=== PATIENT | female | born 1960 | race Caucasian/White ===

== ENCOUNTER 2022-01-27 14:58 | Emergency (ER) | payer OTHER, SELFPAY ==
[2022-01-27 15:17] VITALS: BP 147/63; PULSE 92; RESP 18; O2SAT 98; BMI 33.1
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
[2022-01-27] MEDS: Ketorolac Tromethamine 30 MG/ML VIAL 15 MG IM (15:25)
[2022-01-27] MEDS: predniSONE 20 MG TABLET 60 MG PO (15:26)
== END 2022-01-27 15:43 | disposition home or self-care (01) ==
PROVIDERS: Emergency Provider Student in an Organized Health Care Education/Training Program; PCP Internal Medicine
DX: S29.012A Strain of muscle and tendon of back wall of thorax, initial encounter (principal); V43.52XA Car driver injured in collision with other type car in traffic accident, initial encounter; Y93.9 Activity, unspecified; Y92.410 Unspecified street and highway as the place of occurrence of the external cause; Y99.9 Unspecified external cause status
CPT/HCPCS: 96372; 99283; 99284; J1885

== ENCOUNTER 2022-01-31 07:48 | Emergency (ER) | payer OTHER, BC, SELFPAY ==
[2022-01-31 08:03] VITALS: BP 159/77; PULSE 96; RESP 20; TEMP 35.8; O2SAT 97; BMI 33.1
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
== END 2022-01-31 08:14 | disposition home or self-care (01) ==
PROVIDERS: Emergency Provider Emergency Medicine Emergency Medical Services; PCP Internal Medicine
DX: S13.4XXA Sprain of ligaments of cervical spine, initial encounter (principal); V49.9XXA Car occupant (driver) (passenger) injured in unspecified traffic accident, initial encounter; Y93.9 Activity, unspecified; Y92.410 Unspecified street and highway as the place of occurrence of the external cause; Y99.9 Unspecified external cause status
CPT/HCPCS: 99283; 99284

== ENCOUNTER 2022-02-06 13:50 | Outpatient (REF) | payer OTHER, BC, SELFPAY ==
--- NOTE | ~2022-02-06 | XR_ITS ---
EXAMINATION: XR LUMBOSACRAL SPINE CLINICAL INFORMATION: Low back pain COMPARISON: X-rays of the abdomen July 2012 TECHNIQUE: Three views of the lumbosacral spine. FINDINGS: Vertebral bodies normally aligned. There is moderate degenerative disc change present at the L4-5 level manifested by disc space narrowing and plate osteophytes. There is mild degenerative disc changes at L2-3 L3-4 manifested by small endplate osteophytes without disc space narrowing. Facets are unremarkable. There is no fracture or bone lesion. Arterial calcification noted within the distal abdominal aorta. Partially visualized pelvis including hip joints are unremarkable. XR/XR lumbar spine 2-3V IMPRESSION: Mild to moderate spondylosis of lumbar sacral spine.
== END 2022-02-06 13:51 | disposition home or self-care (01) ==
LOC: HO.XRAY 13:50
PROVIDERS: PCP Internal Medicine; Referring Provider Internal Medicine; Visit Provider Nurse Practitioner Family
DX: M54.50 Low back pain, unspecified (principal)
CPT/HCPCS: 72100

== ENCOUNTER 2022-02-07 14:18 | Outpatient (REF) | payer OTHER, SELFPAY ==
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
== END 2022-02-07 14:19 | disposition home or self-care (01) ==
LOC: HO.CT 14:18
PROVIDERS: PCP Internal Medicine; Visit Provider Internal Medicine
DX: R51.9 Headache, unspecified (principal); V87.7XXA Person injured in collision between other specified motor vehicles (traffic), initial encounter
CPT/HCPCS: 70450

== ENCOUNTER → 2022-03-14 09:35 | Outpatient (BNVA) | payer OTHER, BC, SELFPAY | PROVIDERS: PCP Internal Medicine; Visit Provider Psychiatry & Neurology Neurology | DX: G47.9 Sleep disorder, unspecified (principal) ==

== ENCOUNTER 2022-04-07 07:39 | Outpatient (REF) | payer OTHER, BC, SELFPAY ==
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
[2022-04-07] MEDS: iohexoL 350 MG/ML 100 ML INFUS..BTL 60 ML IV (08:31)
[2022-04-07 14:47] LABS: Creatinine POC 0.7 mg/dL (0.5-1.4); GFR POC > 60
== END 2022-04-07 07:40 | disposition home or self-care (01) ==
LOC: HO.CT 07:39
PROVIDERS: PCP Internal Medicine; Visit Provider Internal Medicine
DX: R22.1 Localized swelling, mass and lump, neck (principal); S16.1XXA Strain of muscle, fascia and tendon at neck level, initial encounter; X58.XXXA Exposure to other specified factors, initial encounter; Y93.9 Activity, unspecified; Y92.9 Unspecified place or not applicable; Y99.9 Unspecified external cause status
CPT/HCPCS: 70491; 82565; Q9967

== ENCOUNTER 2024-06-04 02:19 | Emergency (ER) | payer BC, SELFPAY ==
--- NOTE | ~2024-06-04 | XR_ITS ---
CLINICAL HISTORY: ?CONSTIPATION 1 view abdomen Comparison: None Findings: Bowel-gas pattern is within normal limits. There is a moderate amount of stool in the colon. There is no evidence of bowel obstruction. No calcifications are seen within the regions of the kidneys or ureters. Impression: Bowel-gas pattern is within normal limits. This document has been electronically signed by: Chau Brown MD on 06/04/2024 03:01:49
[2024-06-04 02:21] VITALS: BP 133/98; PULSE 100; RESP 19; TEMP 36.9; O2SAT 98; BMI 33.1
[2024-06-04 02:39] LABS: MANUAL DIFF FLAG NO
[2024-06-04 02:42] LABS: Basophils Absolute Auto 0.1 X10*3/uL (0.0-0.2); Eosinophils Absolute Auto 0.2 X10*3/uL (0.0-0.4); Eosinophils Percent Auto 3.4 % (0-4); Hematocrit 43.6 % (37.0-47.0); Hemoglobin 15.2 g/dl (12.0-16.0); Imm Gran Abs Auto 0.02 X10*3/uL (0.00-0.03); Imm Gran Pct Auto 0.3 % (0.0-0.4); Lymphocytes Absolute Auto 1.9 X10*3/uL (1.2-4.9); Lymphocytes Percent Auto 32.7 % (20-40); Mean Corpuscular HGB Conc 34.9 g/dl (31.0-35.0); Mean Corpuscular Hemoglobin 30.7 pg (27.0-33.0); Mean Corpuscular Volume 88.1 fL (80.0-98.0); Monocytes Absolute Auto 0.7 X10*3/uL (0.1-1.2); Monocytes Percent Auto 11.9 % (2-11); Neutrophils Percent Auto 50.7 % (45-73); Platelet Count 224 X10*3/uL (160-400); Red Blood Count 4.95 X10*6/uL (4.20-5.50); White Blood Count 5.9 X10*3/uL (4.8-10.8)
[2024-06-04 03:01] LABS: Alanine Aminotransferase 44 U/L (0-31); Albumin Level 4.2 g/dL (3.5-5.0); Anion Gap 15 (12-20); Aspartate Amino Transferase 27 U/L (5-31); Bilirubin Total 0.7 mg/dL (0.0-1.0); Blood Urea Nitrogen 16 mg/dL (9-16); Calcium 9.5 mg/dL (8.4-10.2); Carbon Dioxide 19 mmol/L (22-29); Chloride 109 mmol/L (96-108); Creatinine Clr Calc Pharmacy 88.4; Estimated Glomerular Filt Rate > 60; Glucose Random 228 mg/dL (60-115); Lipase 34 U/L (8-78); Potassium 3.7 mmol/L (3.3-5.1); Sodium 139 mmol/L (135-145); Total Protein 7.7 g/dL (6.5-8.0)
[2024-06-04 03:20] LABS: Alkaline Phosphatase 96 U/L (39-117)
[2024-06-04 04:00] LABS: Appearance Urine Cloudy; Color Urine Yellow; Glucose Urine UA >=1000 mg/dL (Negative); Leukocyte Esterase Urine Small (1+) (Negative); Nitrite Urine Negative (Negative); Specific Gravity - Urine >= 1.030 (1.005-1.025); UMIC TRIGGER UACC YES; Urine Blood Small (1+) (Negative); Urine Ketones 40 mg/dL (Negative); Urine Protein Trace mg/dL (Neg-Trace)
[2024-06-04] MEDS: Nitrofurantoin Monohyd/M-Cryst 100 MG CAPSULE PO (04:14)
[2024-06-04] MEDS: Fluconazole 150 MG TABLET PO (04:14)
[2024-06-04 04:15] VITALS: BP 152/66; PULSE 97; RESP 20; TEMP 37.2; O2SAT 95
[2024-06-04 04:20] LABS: Bacteria Urine 1+ (None Seen); Hyaline Casts Urine 0-2 /LPF (0-2); UACC Culture Trigger YES
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
[2024-06-04 04:31] VITALS: BP 152/66; PULSE 97; RESP 20; TEMP 37.2; O2SAT 95
== END 2024-06-04 04:32 | disposition home or self-care (01) ==
LOC: HO.ED 04:32
PROVIDERS: Emergency Provider Emergency Medicine Emergency Medical Services; PCP Internal Medicine
DX: B37.31 Acute candidiasis of vulva and vagina (principal); N39.0 Urinary tract infection, site not specified; K59.00 Constipation, unspecified; Z79.899 Other long term (current) drug therapy
CPT/HCPCS: 36415; 74018; 80053; 81001; 83690; 85025; 87086; 87088; 87186; 99283

== ENCOUNTER → 2024-06-04 02:34 | Outpatient (BNV) | payer BC, SELFPAY | PROVIDERS: Emergency Provider Emergency Medicine Emergency Medical Services; PCP Internal Medicine; Visit Provider Radiology Diagnostic Radiology | DX: K59.00 Constipation, unspecified (principal) | CPT/HCPCS: 74018 ==

== ENCOUNTER 2025-01-10 08:29 | Day surgery (SDC) | payer BC, SELFPAY ==
--- OUTSIDE RECORDS SUMMARY | 2024-12-23 13:35 | XMS_ITS | Encounter Summary ---
Author Organization [facility] Address [id number] [place] [id number] Care Team Providers Care Glass Ribbon Machine Operator Assistant Name Role Phone Aquilino Nunes MD Primary Care Provider [phone] Encounter Details Date Type Department Care Team (Latest Contact Info) Description 09/05/2024 Lab Requisition [facility] [address] [facility] [email or web address] [address] Watson Pate MD [address] [address] Encounter for gynecological examination (general) (routine) without abnormal findings Social History Tobacco Use Types Packs/Day Years Used Date Smoking Tobacco: Never Assessed Comments Unknown Sex and Gender Information Value Date Recorded Sex Assigned at Not on file Legal Sex Female 3:23 PM EDT Gender Identity Not on file Sexual Orientation Not on file documented as of this encounter Plan of Treatment Not on file documented as of this encounter Procedures Procedure Name Priority Date/Time Associated Diagnosis Comments PAP SMEAR Routine 09/05/2024 12:00 AM EDT Encounter for gynecological examination (general) (routine) without abnormal findings documented in this encounter Results * Pap smear (09/05/2024 12:00 AM EDT) Interpretation Negative for intraepithelial lesion or malignancy 09/07/2024 3:07 PM EDT [facility] General Categorization Negative 09/07/2024 3:07 PM EDT [facility] Other Findings Atrophy 09/07/2024 3:07 PM EDT [facility] Specimen Adequacy Satisfactory for evaluation [facility] Pap Methodology Liquid Based Pap Test 09/07/2024 3:07 PM [facility] Disclaimer The Pap test is a screening test which carries an inherent false negative rate. These test results should be correlated with the patient's clinical findings and history. This Pap test was processed using an automated screening system. Technical cytopathology services provided by [facility], at [address] [place] [address] (CLIA # [id number]/Lan Flowers MD, Fence Post Cutter.) 09/07/2024 3[facility] Console Pap Interpretation Reported 09/07/2024 3:07 PM [facility] Brushing/Spatula Cervix uteri structure / Unknown 09/05/2024 09/05/2024 3:25 PM EDT us Watson Pate MD LAB CYTOLOGY ORDERABLES Final Result Performing Organization Address City/State/[facility] Co de Phone Number [facility] [address] [place] [address], documented in this encounter Visit Diagnoses Diagnosis Encounter for gynecological examination (general) (routine) without abnormal findings documented in this encounter Care Teams Glass Ribbon Machine Operator Assistant Relationship Specialty Start Date End Date Aquilino Nunes MD [address] [place] [id number] PCP - General Internal Medicine 09/05/24 documented as of this encounter
--- OUTSIDE RECORDS SUMMARY | 2024-12-23 13:35 | XMS_ITS | Clinical Summary ---
Author Organization 299 [facility] Address [address] [place] [address] Phone Care Team Providers Care Charge Master Specialist Name Role Phone Aquilino Nunes MD Primary Care Provider [phone] Social History Tobacco Use Types Packs/Day Years Used Date Smoking Tobacco: Never Assessed Comments Unknown Sex and Gender Information Value Date Recorded Sex Assigned at Not on file Legal Sex Female 3:23 PM EDT Gender Identity Not on file Sexual Orientation Not on file Plan of Treatment Health Maintenance Due Date Last Done Comments Breast Cancer Screening 1961 Colorectal Cancer Screening: Colonoscopy 1961 DTaP,Tdap,and Td Vaccines (1 - Tdap) 1980 Pneumococcal Vaccine: 50+ Ye ars (1 of 1 - PCV) 2011 Zoster Vaccines (1 of 2) 2011 Depression Screening 03/09/2024 HIV Screening 09/06/2024 Hepatitis C Screening 09/06/2024 Social Influencers of Health Screening 09/06/2024 COVID-19 Vaccine (1 - 2023-2 5 season) 2024 Influenza Vaccine (#1) 2024 Cervical Cancer Screening: P ap Smear 09/06/2027 09/05/2024 RSV Immunization Adult Patie nts (1 - 1-dose 75+ series) 2036 HIB Vaccines Aged Out No longer eligi ble based on patient's age to complete this topic HPV Vaccines Aged Out No longer eligi ble based on patient's age to complete this topic Hepatitis A Vaccines Aged Out No long er eligible based on patient's age to complete this topic Hepatitis B Vaccines Aged Out No long er eligible based on patient's age to complete this topic IPV Vaccines Aged Out No longer eligi ble based on patient's age to complete this topic MMR Vaccines Aged Out No longer eligi ble based on patient's age to complete this topic Meningococcal ACWY Vaccine Aged Out N o longer eligible based on patient's age to complete this topic Meningococcal B Vaccine Aged Out No l onger eligible based on patient's age to complete this topic RSV Immunization Patients Un merlyn 20 months Aged Out No longer eligible b ased on patient's age to complete this topic Varicella Vaccines Aged Out No longer eligible based on patient's age to complete this topic Procedures Procedure Name Priority Date/Time Associated Diagnosis Comments PAP SMEAR Routine 09/05/2024 12:00 AM EDT Encounter for gynecological examination (general) (routine) without abnormal findings from Last 3 Months or Most Recently Relevant to Health Maintenance Results * Pap smear (09/05/2024 12:00 AM EDT) Interpretation Negative for intraepithelial lesion or malignancy 09/07/2024 3:07 PM [facility] General Categorization Negative 09/07/2024 3:07 PM [facility] Other Findings Atrophy 09/07/2024 3:07 PM [facility] Specimen Adequacy Satisfactory for evaluation 09/07/2024 3:07 PM [facility] Pap Methodology Liquid Based Pap Test 09/07/2024 3:07 PM [facility] Disclaimer The Pap test is a screening test which carries an inherent false negative rate. These test results should be correlated with the patient's clinical findings and history. This Pap test was processed using an automated screening system. Technical cytopathology services provided by [facility], at [address] [place] [address], [place] [address] (CLIA # [id number]/Lan Flowers MD, Rotary Dryer Operator.) 09/07/2024 3:07 PM [facility] Console Pap Interpretation Reported 09/07/2024 3:07 PM [facility] Brushing/Spatula Cervix uteri structure / Unknown 09/05/2024 09/05/2024 3:25 PM EDT us Watson Pate MD LAB CYTOLOGY ORDERABLES Final Result [facility] [address] [place] [address], from Last 3 Months or Most Recently Relevant to Health Maintenance Insurance [facility] Care Teams Charge Master Specialist Relationship Specialty Start Date End Date Aquilino Nunes MD [address] [place] [address] PCP - General Internal Medicine 09/05/24
[2025-01-06 15:11] VITALS: BMI 34.3
--- NOTE | 2025-01-09 08:42 | HO.ANESPROP2 ---
Documented by User: Alyce Winters NP 01/09/25 08:42 HPI - Anesthesia Eval Consult details Narrative: 64yo F for Colonoscopy PMFSH Active Problems Active Problems: All Active Problems Analgesic rebound headache (Acute) Sleep disorder (Acute) Post-concussion headache (Acute) Rhinorrhea (Acute) Chronic headaches (Acute) Back pain (Acute) Neck pain (Acute) Insect bite (Acute) Hyperlipidemia (Acute) Diabetes (Acute) HTN (hypertension) (Acute) Hypothyroidism (Acute) Past Medical History Medical History Headache Hyperlipidemia Diabetes HTN (hypertension) Hypothyroidism Surgical History Surgical History H/O colonoscopy History of back surgery Social History Social History Alcohol intake: never Patient Tobacco Use Status: Never used Tobacco Use of substances other than those prescribed or required for medical reasons: No Are you DNR?: No Advance Directives: No Advance Directives Information Provided: Yes Meds Allergies Allergy/AdvReac Type Severity Reaction Status Date / Time shellfish derived (shellfish) Allergy Severe Anaphylaxis Verified 01/10/25 09:29 metformin Allergy Intermediate Vomiting Verified 01/10/25 09:29 alcohol (ALCOHOL) Allergy Unknown Nausea Verified 01/10/25 09:30 coffee (Coffea arabica) Allergy Unknown Nausea Verified 01/10/25 09:30 (COFFEE (BEVERAGE)) meperidine (Demerol) Allergy Unknown Nausea Verified 01/10/25 09:31 orange juice ([place] Juice) Allergy Unknown Nausea Verified 01/10/25 09:30 Tea (Pina Sinensis) Allergy Unknown Nausea Verified 01/10/25 09:30 codeine (CODEINE) AdvReac Intermediate NAUSEA & Verified 01/10/25 09:29 VOMITING Home Medications ?Medication ?Instructions ?Recorded ?Confirmed ?Last Taken ?Type atorvastatin 10 mg tablet 10 mg PO DAILY 10/29/20 01/06/25 Unknown History levothyroxine 125 mcg tablet 125 mcg PO DAILY 10/29/20 01/06/25 Unknown History lisinopril 10 mg tablet 10 mg PO DAILY 10/29/20 01/06/25 Unknown History calcium 315 mg (as 1 tab PO BID 01/06/25 01/06/25 Unknown History citrate)-vitamin D3 6.25 mcg (250 unit) tablet (Citracal + Vitamin D Maximum) cholecalciferol (vitamin D3) 25 25 mcg PO DAILY 01/06/25 01/06/25 Unknown History mcg (1,000 unit) capsule (Vitamin D3) pioglitazone 30 mg tablet 30 mg PO DAILY 01/06/25 01/06/25 Unknown History Exam Height,Weight and Vital Signs: Height 5 ft 7 in Weight 99.427 kg Assessment and Plan Assessment Anesthesia Assessment: Chart Reviewed Documented by User: Marina Mccormack MD 01/10/25 10:05 PMFSH Past Medical History Medical History Headache Hyperlipidemia Diabetes HTN (hypertension) Hypothyroidism Family History Family history of problems with anesthesia: No Surgical History Surgical History H/O colonoscopy History of back surgery History of Problems with Anesthesia: No Social History Social History Alcohol intake: never Patient Tobacco Use Status: Never used Tobacco Use of substances other than those prescribed or required for medical reasons: No Are you DNR?: No Advance Directives: No Advance Directives Information Provided: Yes Meds Allergies Allergy/AdvReac Type Severity Reaction Status Date / Time shellfish derived (shellfish) Allergy Severe Anaphylaxis Verified 01/10/25 09:29 metformin Allergy Intermediate Vomiting Verified 01/10/25 09:29 alcohol (ALCOHOL) Allergy Unknown Nausea Verified 01/10/25 09:30 coffee (Coffea arabica) Allergy Unknown Nausea Verified 01/10/25 09:30 (COFFEE (BEVERAGE)) meperidine (Demerol) Allergy Unknown Nausea Verified 01/10/25 09:31 orange juice ([place] Juice) Allergy Unknown Nausea Verified 01/10/25 09:30 Tea (Pina Sinensis) Allergy Unknown Nausea Verified 01/10/25 09:30 codeine (CODEINE) AdvReac Intermediate NAUSEA & Verified 01/10/25 09:29 VOMITING Home Medications ?Medication ?Instructions ?Recorded ?Confirmed ?Last Taken ?Type atorvastatin 10 mg tablet 10 mg PO DAILY 10/29/20 01/06/25 Unknown History levothyroxine 125 mcg tablet 125 mcg PO DAILY 10/29/20 01/06/25 Unknown History lisinopril 10 mg tablet 10 mg PO DAILY 10/29/20 01/06/25 Unknown History calcium 315 mg (as 1 tab PO BID 01/06/25 01/06/25 Unknown History citrate)-vitamin D3 6.25 mcg (250 unit) tablet (Citracal + Vitamin D Maximum) cholecalciferol (vitamin D3) 25 25 mcg PO DAILY 01/06/25 01/06/25 Unknown History mcg (1,000 unit) capsule (Vitamin D3) pioglitazone 30 mg tablet 30 mg PO DAILY 01/06/25 01/06/25 Unknown History Exam Airway Mallampati Class: II TM Dist: >3cm Neck ROM: Full Heart: rrr Lungs: cta Assessment and Plan Assessment Anesthesia Assessment: Anesthesia Plan Discussed Final Anesthetic Review Family History of Problems with Anesthesia: No History of Problems with Anesthesia: No NPO: Yes ASA Class: III Final Preanesthetic Review: No Changes in Pt Med Stat, Meds/Allgs Chart Reviewed, Consent Obtained/Reviewed and Anes Risks/Benef Reviewed Patient Risk: Intermediate Procedure Risk: Low Anesthetic Plan Anesthetic Plan: MAC: and Agree w/ Assess. and Plan Disposition: Standard PACU
[2025-01-10 09:24] VITALS: BMI 33.4
[2025-01-10 09:31] VITALS: BP 133/71; PULSE 87; RESP 15; TEMP 36.3; O2SAT 96
[2025-01-10] MEDS: Lactated Ringers 1,000 ML 100 ML IVCONT (09:38)
--- NOTE | 2025-01-10 09:48 | MHC.SHP ---
Pre-Procedural Eval Section A - 24 Hr Update-Section A only Date of Service: 01/10/25 Section B - Complete if H&P > 30 days Chief Complaint: screening Details of Present Illness: see H&P no changes Relevant Family History (Specify if Yes): No Relevant Social History: None Present Medications: see Short Stay Collaborative assessment Medical History: No relevant PMH History of Previous Operations: No relevant previous surgery Allergies: Allergies Allergy/AdvReac Type Severity Reaction Status Date / Time shellfish derived (shellfish) Allergy Severe Anaphylaxis Verified 01/10/25 09:29 metformin Allergy Intermediate Vomiting Verified 01/10/25 09:29 alcohol (ALCOHOL) Allergy Unknown Nausea Verified 01/10/25 09:30 coffee (Coffea arabica) Allergy Unknown Nausea Verified 01/10/25 09:30 (COFFEE (BEVERAGE)) meperidine (Demerol) Allergy Unknown Nausea Verified 01/10/25 09:31 orange juice ([place] Juice) Allergy Unknown Nausea Verified 01/10/25 09:30 Tea (Pina Sinensis) Allergy Unknown Nausea Verified 01/10/25 09:30 codeine (CODEINE) AdvReac Intermediate NAUSEA & Verified 01/10/25 09:29 VOMITING Review of Systems Sugical H&P ROS: Negative: Constitution, Cardiovascular, Respiratory, Neurological, Psychiatric, Hem-Onc, Allergic/Immunologic, Gastrointestinal, Genitourinary, Musculoskeletal, Integumentary, Endocrine and Eyes/Ears/Nose/Throat Exam Surgical H&P Exam: Normal: HEENT, Normal: Heart, Normal: Lungs, Normal: Extremities, Normal: Abdomen, Normal: Skin and Normal: Neurological Plan Diagnosis/Plan: Unchanged I have reviewed the history and physical and performed a pertinent physical examination on my patient. No changes have occurred unless specified. Time Spent With Patient Time: Total time managing care of this patient today ____ minutes.
[2025-01-10 09:50] LABS: Glucose, Whole Blood 159 mg/dL (60-115)
[2025-01-10 10:30] VITALS: BP 110/83; PULSE 71; RESP 16; TEMP 36.6; O2SAT 99
[2025-01-10 10:45] VITALS: BP 123/71; PULSE 67; RESP 16; O2SAT 99
[2025-01-10 11:00] VITALS: BP 134/68; PULSE 69; RESP 16; TEMP 36.6; O2SAT 99
--- NOTE | 2025-01-10 11:06 | OP_ITS ---
DATE OF SERVICE: 01/10/2025 SURGEON: Fidel Gallo MD INDICATIONS: Colon cancer screening. PREOPERATIVE DIAGNOSIS: POSTOPERATIVE DIAGNOSIS: PROCEDURE PERFORMED: Colonoscopy to the terminal ileum. ESTIMATED BLOOD LOSS: COMPLICATIONS: ANESTHESIA: Monitored anesthesia care. ASSISTANTS: SPECIMENS: DESCRIPTION OF PROCEDURE: A history and physical was performed. The risks and benefits of the procedure were explained to the patient, and informed consent was obtained. The patient was placed in the left lateral decubitus position. A digital rectal exam was performed and was found to be normal. The Olympus pediatric video colonoscope was introduced into the rectum and advanced to the cecum. The cecum was identified by transillumination, palpation, and identification of ileocecal valve. Examination was performed. The scope was removed. She tolerated the procedure well and was returned to the recovery area in stable condition. FINDINGS: The terminal ileum was examined and appeared normal. The visualized colonic mucosa was within normal limits without evidence of masses or ulcers. No polyps were identified. The quality of the prep was good. Retroflexed examination showed some small internal hemorrhoids. IMPRESSION: Normal colonoscopy. RECOMMENDATION: 1. Follow up as needed. 2. Repeat colonoscopy is recommended in 10 years for average-risk individuals. MD MELIDA Rogers/LULA / [id number]
[2025-01-10 11:15] VITALS: BP 134/68; PULSE 65; RESP 16; TEMP 36.5; O2SAT 97
== END 2025-01-10 12:04 | disposition home or self-care (01) ==
PROVIDERS: PCP Internal Medicine; Visit Provider Internal Medicine Gastroenterology
PROC: 0DJD8ZZ Inspection of Lower Intestinal Tract, Via Natural or Artificial Opening Endoscopic (ICD-10-PCS; CPT 45378; principal; 2025-01-10 10:30)
DX: Z12.11 Encounter for screening for malignant neoplasm of colon (principal); Z80.0 Family history of malignant neoplasm of digestive organs; Z86.0109 Personal history of other colon polyps; K64.8 Other hemorrhoids; E11.9 Type 2 diabetes mellitus without complications
CPT/HCPCS: 45378; 82947; J2405; J2704